=== PATIENT | male | born 1960 | race Hispanic/Latino ===

== ENCOUNTER 2021-06-16 18:22 | Emergency (ER) | payer MEDICAID ==
[2021-06-16] MEDS ORDERED: HYDROcodone/ACETAMINOPHEN 7.5-325MG TAB PO ONE (22:14)
[2021-06-16] MEDS ORDERED: ONDANSETRON 4 MG ODT TAB PO ONE (22:14)
[2021-06-16] MEDS ORDERED: IBUPROFEN 600 MG TAB PO ONE (22:14)
--- NOTE | 2021-06-17 01:06 | XRay Report ---
LUMBAR SPINE 3 VIEWS INDICATION / CLINICAL INFORMATION: Pain. 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 FINDINGS: VERTEBRAE: No acute fracture. L2 corpectomy with bone cage and left lateral fusion from L1-L3. No sig nificant malalignment. DISC SPACES / FACET JOINTS:Moderate discogenic spondylosis at L3-4, L4-5, and L5-S1. PARASPINAL SOFT TISSUES:No significant abnormality. ADDITIONAL FINDINGS: None. IMPRESSION: 1. No acute abnormality. Signer Name: Liza Nickerson MD Signed: 06/17/2021 1:01 AM Workstation Name: [id number]
--- NOTE | 2021-06-17 01:20 | Emergency Department Report ---
ED Back Pain/Injury HPI - General Chief Complaint: Back Pain/Injury Stated Complaint: BACK PAIN Source: patient Limitations: No Limitations - History of Present Illness Initial Comments: Patient is a 60-year-old male with a history of chronic osteoarthritis affecting his left hip and chronic low back pain status post kyphoplasty surgery many years ago who presented to the ED with complaint of acute exacerbation of his chronic low back pain that has been persistent for the last 1 month, but worse in the last 2 days. Patient stated that he may have aggravated his low back pain due to heavy lifting at work about a month ago but initially felt that the pain might resolve on its own by taking cauo-lok-wglgnwj pain medications since he does not have a primary care physician in the area having recently moved to the area about 8 months ago. Patient states that the pain in his lower back is constant and persistent. Patient denies dysuria, urinary frequency and urgency, hematuria, testicular pain, abdominal pain, chest pain, shortness of breath, neck pain, dizziness or headache, knee pain, numbness and tingling or weakness of upper and lower extremities bilaterally, fever and chills, nausea and vomiting, fall or traumatic injury. MD Complaint: back pain, other (chronic low back pain) -: Gradual, year(s) (>2) Similar Symptoms Previously: Yes (chronic low back pain s/p surgery) Place: home Radiation: none Severity: severe Severity scale (0 -10): 8 Quality: sharp, aching Consistency: constant Improves With: none Worsens With: movement, sitting upright, walking Context: while lifting, turning/twisting Associated Symptoms: denies other symptoms, difficulty walking (due to low back pain). denies: confusion, weakness, chest pain, numbness, cough, difficulty urinating, diaphoresis, incontinence, fever/chills, headaches, loss of appetite, nausea/vomiting, rash, seizure, shortness of breath, syncope, other Treatments Prior to Arrival: NSAIDS, acetaminophen - Related Data Previous Rx's Medication Instructions Recorded Last Taken Type Baclofen 20 mg PO Q12H PRN #30 06/17/21 Unknown Rx Gabapentin 300 mg PO BID #60 cap 06/17/21 Unknown Rx Naproxen 500 mg PO Q12H PRN #30 06/17/21 Unknown Rx predniSONE [Deltasone] 60 mg PO QDAY #15 tab 06/17/21 Unknown Rx Allergies Allergy/AdvReac Type Severity Reaction Status Date / Time No Known Allergies Allergy Unverified 06/16/21 22:00 ED Review of Systems ROS: Stated complaint: BACK PAIN Other details as noted in HPI Constitutional: denies: chills, fever Eyes: denies: eye pain, eye discharge, vision change ENT: denies: ear pain, throat pain Respiratory: denies: cough, shortness of breath, wheezing Cardiovascular: denies: chest pain, palpitations Endocrine: no symptoms reported Gastrointestinal: denies: abdominal pain, nausea, diarrhea Genitourinary: denies: urgency, dysuria Musculoskeletal: back pain (low back pain). denies: joint swelling, arthralgia Skin: denies: rash, lesions Neurological: denies: headache, weakness, paresthesias Psychiatric: denies: anxiety, depression Hematological/Lymphatic: denies: easy bleeding, easy bruising ED Past Medical Hx - Past Medical History Previous Medical History?: Yes Hx Arthritis: Yes (Left hip) Additional medical history: CHRONIC BACK PAIN. CHRONIC LEFT HIP PAIN - Surgical History Past Surgical History?: Yes Additional Surgical History: BACK (MULTIPLE) - Social History Smoking Status: Never Smoker Substance Use Type: None - Medications Home Medications: Home Medications Medication Instructions Recorded Confirmed Last Taken Type Baclofen 20 mg PO Q12H PRN #30 06/17/21 Unknown Rx Gabapentin 300 mg PO BID #60 cap 06/17/21 Unknown Rx Naproxen 500 mg PO Q12H PRN #30 06/17/21 Unknown Rx predniSONE [Deltasone] 60 mg PO QDAY #15 tab 06/17/21 Unknown Rx ED Physical Exam - General Limitations: No Limitations General appearance: alert, in no apparent distress - Head Head exam: Present: atraumatic, normocephalic, normal inspection - Eye Eye exam: Present: normal appearance, PERRL, EOMI Pupils: Present: normal accommodation - ENT ENT exam: Present: normal exam, normal orophraynx, mucous membranes moist, TM's normal bilaterally, normal external ear exam - Neck Neck exam: Present: normal inspection, full ROM. Absent: tenderness - Respiratory Respiratory exam: Present: normal lung sounds bilaterally. Absent: respiratory distress, wheezes, rales, rhonchi, chest wall tenderness, accessory muscle use, decreased breath sounds, prolonged expiratory - Cardiovascular Cardiovascular Exam: Present: regular rate, normal rhythm, normal heart sounds. Absent: systolic murmur, diastolic murmur, rubs, gallop - GI/Abdominal GI/Abdominal exam: Present: soft, normal bowel sounds. Absent: tenderness, guarding, rebound, hyperactive bowel sounds, hypoactive bowel sounds, mass, bruit - Extremities Exam Extremities exam: Present: normal inspection, full ROM, normal capillary refill - Back Exam Back exam: Present: normal inspection, full ROM, tenderness (Palpable lumbosacral paraspinal musculoskeletal tenderness), muscle spasm, paraspinal tenderness. Absent: CVA tenderness (R), CVA tenderness (L), vertebral tenderness, rash noted - Neurological Exam Neurological exam: Present: alert, oriented X3, CN II-XII intact, normal gait, reflexes normal - Psychiatric Psychiatric exam: Present: normal affect, normal mood - Skin Skin exam: Present: warm, dry, intact, normal color. Absent: rash ED Course Vital Signs 06/16/21 06/16/21 21:51 22:38 Temperature 98.5 F Pulse Rate 83 Respiratory 18 18 Rate Blood Pressure 113/73 O2 Sat by Pulse 96 Oximetry ED Medical Decision Making - Radiology Data [facility] [address] [place] [address] XRay Report Signed Patient: MIGUELANGEL GALVAN MR#: [id number] : 1960 Acct:[id number] Age/Sex: 60 / M ADM Date: 06/16/21 Loc: ED Attending Dr: Ordering Physician: TJ BELL Date of Service: 06/16/21 Procedure(s): XR spine lumbosacral 2-3V Accession Number(s): [id number] cc: TJ BELL Fluoro Time In Minutes: LUMBAR SPINE 3 VIEWS INDICATION / CLINICAL INFORMATION: Pain. 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 FINDINGS: VERTEBRAE: No acute fracture. L2 corpectomy with bone cage and left lateral fusion from L1-L3. No significant malalignment. DISC SPACES / FACET JOINTS:Moderate discogenic spondylosis at L3-4, L4-5, and L5-S1. PARASPINAL SOFT TISSUES:No significant abnormality. ADDITIONAL FINDINGS: None. IMPRESSION: 1. No acute abnormality. Signer Name: Liza Nickerson MD Signed: 06/17/2021 1:01 AM Workstation Name: [id number] Transcribed By: DT Dictated By: Ricardo Nickerson MD Electronically Authenticated By: Ricardo Nickerson MD Signed Date/Time: 06/17/21100 DD/ TD/TT: - Medical Decision Making This is a 60-year-old male with a history of chronic osteoarthritis affecting his left hip and chronic low back pain status post kyphoplasty surgery many years ago who presented to the ED with complaint of acute exacerbation of his chronic low back pain that has been persistent for the last 1 month, but worse in the last 2 days. Patient stated that he may have aggravated his low back pain due to heavy lifting at work about a month ago but initially felt that the pain might resolve on its own by taking vjal-ruq-bvwjzbm pain medications since he does not have a primary care physician in the area having recently moved to the area about 8 months ago. Patient states that the pain in his lower back is constant and persistent. In the ED, patient is alert and oriented x3 and is not in any distress but appears to be in pain. Patient was treated for pain in the ED and the L-spine x-ray showed no acute fracture or subluxations. It also showed the L2 corpectomy with bone cage and left lateral fusion from L1- L3. No significant malalignment. On reevaluation, patient's pain is well controlled with medication. Patient was discharged home on pain medications and muscle relaxants and advised to follow-up with his primary care physician in 5 to 7 days for reevaluation or return to the ED immediately if symptoms get worse. - Differential Diagnosis chronic back pain; muscle spasm; lumbar disc disease Critical care attestation.: If time is entered above; I have spent that time in minutes in the direct care of this critically ill patient, excluding procedure time. ED Disposition Clinical Impression: Acute exacerbation of chronic low back pain, Spasm of muscle of lower back Disposition: HOME / SELF CARE / HOMELESS Is pt being admited?: No Does the pt Need Aspirin: No Condition: Stable Instructions: Muscle Cramps and Spasms, [id number], Chronic Back Pain, [id number], Pain Medicine Instructions, [id number] Additional Instructions: Your L-spine x-ray showed moderate discogenic spondylosis at L3-4, L4-5, and L5- S1. The prosthetic in the lumbar spine is intact with no displacement. Your symptoms are likely musculoskeletal following heavy lifting at work which has worsened your chronic low back pain. Therefore take medications with food, drink plenty of fluids and follow-up with your primary care physician in 5 to 7 days for reevaluation. Return to the ED immediately if symptoms get worse. Prescriptions: Baclofen 20 mg PO Q12H PRN #30 PRN Reason: Muscle Spasm predniSONE [Deltasone] 60 mg PO QDAY #15 tab Gabapentin 300 mg PO BID #60 cap Naproxen 500 mg PO Q12H PRN #30 PRN Reason: Pain , Severe (7-10) Referrals: [facility] [Provider Group] - 3-5 Days Time of Disposition: 01:16 Print Language: TURKMEN
[2021-06-17 01:48] VITALS: BP 105/65
== END 2021-06-17 01:50 | disposition home or self-care (01) ==
LOC: ED 18:22
DX: M54.50 Low back pain, unspecified (principal); M62.830 Muscle spasm of back
CPT/HCPCS: 72100; 99283; J3490; Q0162